=== PATIENT | male | born 1985 | race Two or more races ===

== ENCOUNTER → 2020-07-15 | Emergency (ER) | payer MEDICAID ==
[~2020-07-15] VITALS: Ht 185.4 cm; Wt 81.6 kg
[~2020-07-15] MED LIST: KETOROLAC TROMETH 60MG/2ML VIAL IM ONE; TETANUS-DIPTH-ACEL PERTUSSIS 0.5ML SYR Tdap IM ONE; cefTRIAXone W LIDOCAINE 1 GM IM IM ONE
[2020-07-15 05:23] VITALS: BP 133/91
== END | disposition home or self-care (01) ==
LOC: ER 00:27
DX: S62.301A Unspecified fracture of second metacarpal bone, left hand, initial encounter for closed fracture (principal); S62.302A Unspecified fracture of third metacarpal bone, right hand, initial encounter for closed fracture; S62.304A Unspecified fracture of fourth metacarpal bone, right hand, initial encounter for closed fracture; S62.306A Unspecified fracture of fifth metacarpal bone, right hand, initial encounter for closed fracture; W22.8XXA Striking against or struck by other objects, initial encounter; Y93.89 Activity, other specified; Y92.89 Other specified places as the place of occurrence of the external cause; Y99.8 Other external cause status
CPT/HCPCS: 29125; 73130; 90471; 90715; 96372; 99284; J0696; J1885

== ENCOUNTER 2020-10-27 12:17 | Emergency (ER) | payer MEDICAID ==
[~2020-10-27] VITALS: Ht 185.4 cm; Wt 83.9 kg
[2020-10-27 12:17] VITALS: BP 142/76
== END 2020-10-27 14:49 | disposition home or self-care (01) ==
LOC: ER 12:17
DX: S22.41XA Multiple fractures of ribs, right side, initial encounter for closed fracture (principal); S01.531A Puncture wound without foreign body of lip, initial encounter; V86.56XA Driver of dirt bike or motor/cross bike injured in nontraffic accident, initial encounter; Y93.89 Activity, other specified; Y92.89 Other specified places as the place of occurrence of the external cause; Y99.8 Other external cause status
CPT/HCPCS: 71250